=== PATIENT | female | born 1970 | race Caucasian/White ===

== ENCOUNTER → 2017-02-17 | Outpatient (CLI) | payer BC ==
[~2017-02-17] MED LIST: ALPRAZOLAM0.5 MG PO; ESTRADIOL0.5 MG PO; HYDROXYZINE HCL25 MG PO; LOSARTAN-HCTZ1 EAC1 PO; NORCO 7.5-3251 EACH PO; OMEPRAZOLE40 MG PO
== END ==
LOC: US 07:31
DX: R10.11 Right upper quadrant pain (principal); K76.89 Other specified diseases of liver
CPT/HCPCS: 76705

== ENCOUNTER 2017-02-21 12:42 | Emergency (ER) | payer BC ==
[2017-04-06] MEDS ORDERED: OMEPRAZOLE40 MG PO (07:42)
[2017-04-06] MEDS ORDERED: ALPRAZOLAM0.5 MG PO (07:43)
[2017-04-06] MEDS ORDERED: ESTRADIOL0.5 MG PO (07:45)
[2017-04-06] MEDS ORDERED: HYDROXYZINE HCL25 MG PO (07:45)
[2017-04-06] MEDS ORDERED: LOSARTAN-HCTZ1 EAC1 PO (07:46)
[2017-04-06] MEDS ORDERED: NORCO 7.5-3251 EACH PO (11:20)
== END 2017-02-21 14:39 | disposition home or self-care (01) ==
LOC: ER1 12:42
DX: S42.292A Other displaced fracture of upper end of left humerus, initial encounter for closed fracture (principal); I10 Essential (primary) hypertension; Z88.0 Allergy status to penicillin; Z88.2 Allergy status to sulfonamides; Z88.8 Allergy status to other drugs, medicaments and biological substances; W01.0XXA Fall on same level from slipping, tripping and stumbling without subsequent striking against object, initial encounter; Y92.009 Unspecified place in unspecified non-institutional (private) residence as the place of occurrence of the external cause; Z79.899 Other long term (current) drug therapy
CPT/HCPCS: 71010; 73030; 96372; 99283; J1885

== ENCOUNTER → 2021-01-02 | Outpatient (CLI) | payer OTHER ==
[~2021-01-02] MED LIST changes: +DECADRON6 MG PO; +FLAGYL500 MG PO; +VENTOLIN HFA 66.7 GM INH; +ZOFRAN4 MG PO
== END ==
LOC: KOH-I 01-01 13:30
DX: R59.1 Generalized enlarged lymph nodes (principal)
CPT/HCPCS: 76536

== ENCOUNTER → 2021-05-27 | Outpatient (CLI) | payer OTHER | LOC: US 10:39 | DX: N63.22 Unspecified lump in the left breast, upper inner quadrant (principal) | CPT/HCPCS: 76641-LT ==

== ENCOUNTER → 2021-07-02 | Outpatient (CLI) | payer OTHER | LOC: KOH-I 08:00 | DX: K76.0 Fatty (change of) liver, not elsewhere classified (principal) | CPT/HCPCS: 76700 ==

== ENCOUNTER → 2021-09-25 | Day surgery (SDC) | payer OTHER ==
[~2021-09-25] MED LIST changes: +FLUOXETINE HCL60 MG PO; +LITHIUM CARBON300 M2 PO; +MELATONIN1 MG PO; +MULTI-VITAMIN1 EACH PO; +PROMETRIUM 200200 MG PO; +TRAZODONE HCL300 MG PO
== END | disposition home or self-care (01) ==
LOC: OR 07:10
DX: K21.00 Gastro-esophageal reflux disease with esophagitis, without bleeding (principal); K29.70 Gastritis, unspecified, without bleeding; K44.9 Diaphragmatic hernia without obstruction or gangrene; K31.9 Disease of stomach and duodenum, unspecified; K51.90 Ulcerative colitis, unspecified, without complications; I10 Essential (primary) hypertension; J45.909 Unspecified asthma, uncomplicated; F43.10 Post-traumatic stress disorder, unspecified; F41.9 Anxiety disorder, unspecified; F32.A Depression, unspecified; K76.0 Fatty (change of) liver, not elsewhere classified; E66.01 Morbid (severe) obesity due to excess calories; Z68.38 Body mass index [BMI] 38.0-38.9, adult; Z88.0 Allergy status to penicillin; Z88.2 Allergy status to sulfonamides; Z88.8 Allergy status to other drugs, medicaments and biological substances; Z79.899 Other long term (current) drug therapy; Z90.49 Acquired absence of other specified parts of digestive tract; Z90.710 Acquired absence of both cervix and uterus
CPT/HCPCS: J2001; J2704; J7040

== ENCOUNTER → 2021-09-26 | Outpatient (CLI) | payer OTHER | LOC: KOH-I 09-25 13:00 | DX: R59.1 Generalized enlarged lymph nodes (principal) | CPT/HCPCS: 76536 ==

== ENCOUNTER → 2021-12-22 | Outpatient (CLI) | payer OTHER | LOC: RAD 12:49 | DX: R06.02 Shortness of breath (principal) | CPT/HCPCS: 71046 ==